=== PATIENT | female | born 2000 | race Caucasian/White ===

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

== ENCOUNTER 2023-03-15 12:07 | Emergency (ER) | payer OTHER, SELFPAY ==
--- NOTE | 2023-03-15 12:12 | W.ED.ABDPA2 ---
HPI - Abdominal Pain General: Chief Complaint: Abdominal Pain Stated Complaint: abd pain Time Seen by Provider: 03/15/23 12:09 Source: patient and family (mother) Mode of arrival: ambulatory Limitations: no limitations History of Present Illness: Patient is a 22-year-old female presents to ED today along with her mother for concerns of lower pelvic pain/cramping. Patient states she has a history of irregular menstrual cycles and states she has not had a period in 3 months. She states today she began her menstrual cycle and while at work began having severe pelvic cramping to the point where the pain was making her very anxious. She states bleeding is not heavy or abnormal compared to her normal day 1 of menstrual cycles. She states upon arrival to the ED her pain has improved and feels calm. She is not having any nausea, vomiting, changes in bowel movements. No fevers. History of ovarian cysts. No vaginal odor, discharge, dyspareunia. MD elicited complaint: abdominal pain Pertinent past history: none Onset (ago): hour(s) Pain Consistency: constant (improved upon arrival to ED) Location: Pelvis Severity: moderate Quality: cramping Radiation: none Migration to: no migration Exacerbating factors: nothing Relieving factors: nothing Context: other (started menstrual cycle today) Associated Symptoms: Denies chills, diarrhea, dysuria, fever(s), nausea and vomiting Treatments prior to arrival: NSAIDs Related Data: Patient : No (unknown ) Review of Systems Const: Denies: fever(s), chills, body aches, fatigue or malaise Card: Denies: chest pain Resp: Denies: dyspnea GI: Reports: abdominal pain; Denies: nausea, vomiting or diarrhea : Reports: vaginal bleeding, irregular period and pelvic pain; Denies: flank pain, difficulty voiding, dysuria, urinary frequency, urinary urgency, urinary hesitancy or dyspareunia Musc: Denies: back pain Skin/Breast: Denies: rash Neuro: Denies: headache(s) or dizziness PFS ED PFSH: Social History Smoking and tobacco status: never smoked Second hand smoke exposure: No Physical Exam Const: COMMON NORMALS: no acute distress, average body habitus, patient oriented x3, no limitations, healthy appearing, alert and well nourished GENERAL APPEARANCE: cooperative ORIENTATION/CONSCIOUSNESS: Yes awake, Yes oriented to person, Yes oriented to place and Yes oriented to time HENMT: COMMON NORMALS: normocephalic and atraumatic HEAD & SCALP: normal to inspection, normocephalic and atraumatic Chest: COMMONS NORMALS: normal inspection of the chest and normal palpation of entire chest wall Resp: COMMON NORMALS: normal respiratory effort and clear to auscultation bilaterally AUSCULTATION: clear to auscultation bilaterally Cardio: COMMON NORMALS: regular rate and regular rhythm RATE: regular rate RHYTHM: regular rhythm GI: COMMON NORMALS: Normal to inspection, nondistended, normoactive bowel sounds present, Soft to palpation, No hepatosplenomegaly present and no masses INSPECTION: Yes normal to inspection AUSCULTATION: Yes normoactive bowel sounds PALPATION: Yes Soft to palpation, Yes Tenderness to palpation present (GI) (mild tenderness to lower pelvis-non surgical exam), No Guarding due to palpation present (GI), No Rigid due to palpation and Yes No hepatosplenomegaly present : COMMON NORMALS: Yes no CVA tenderness BLADDER/KIDNEY EXAM: Yes no CVA tenderness Back/Pelvis: COMMON NORMALS: no CVA tenderness, thoracic and lumbar spine normal to inspection, no thoracic nor lumbar tenderness and thoraco-lumbar ROM normal Extremity: COMMON NORMALS: normal to inspection GENERAL: Yes normal exam except as noted Neuro: XI[place] COMA SCALE: document GCS findings [place] coma scale eye opening: Spontaneous [place] coma scale verbal response: Orientated [place] coma scale motor response: Obey commands [place] coma scale total score: 15 COMMON NORMALS: patient oriented x3, moves all extremities, no focal motor deficits, no sensory deficits noted and gait normal SENSORIUM/ORIENTATION: Yes alert, Yes oriented to person, Yes oriented to place and Yes oriented to time Skin: COMMON NORMALS: no rashes or lesions noted GENERAL SKIN EXAM: no rashes or lesions noted Course Vital Signs: Vital signs: Vital Signs Temperature 97.7 F 03/15/23 12:23 Pulse Rate 62 03/15/23 12:23 Respiratory Rate 18 03/15/23 12:23 Blood Pressure 106/66 03/15/23 12:23 Pulse Oximetry 95 03/15/23 12:23 Oxygen Delivery Me thod Room Air 03/15/23 12:23 MDM - Abdominal Pain Medical Decision Making Patient states her pain has been much improved while here in the ED. Her vital signs have remained stable. Blood work is unremarkable. UA showing hematuria most likely contamination from her menstrual blood. No evidence for infection. Patient states she feels comfortable going home at this time. Strict return ED precautions given. Lab Data 03/15/23 12:37 03/15/23 12:37 Labs/Radiology: Laboratory Results WBC 4.1 10^3/uL (4.5-13.0) L 03/15/23 12:37 RBC 4.50 10^6/uL (4.1-5.3) 03/15/23 12:37 Hgb 12.5 g/dL (11.5-15.3) 03/15/23 12:37 Hct 40.1 % (37.0-47.0) 03/15/23 12:37 MCV 89.1 fl (81-99) 03/15/23 12:37 MCH 27.8 pg (28.0-34.0) L 03/15/23 12:37 MCHC 31.2 g/dL (30.0-36.0) 03/15/23 12:37 RDW 12.9 % (12.1-15.1) 03/15/23 12:37 Plt Count 198 10^3/cmm (130-400) 03/15/23 12:37 MPV 11.0 fL (7.4-10.4) H 03/15/23 12:37 Neut % (Auto) 51.1 % 03/15/23 12:37 Lymph % (Auto) 38.0 % 03/15/23 12:37 Williamson % (Auto) 5.7 % 03/15/23 12:37 Eos % (Auto) 4.2 % 03/15/23 12:37 Baso % (Auto) 1.0 % 03/15/23 12:37 Neut # (Auto) 2.07 10^3/uL (1.8-8.0) 03/15/23 12:37 Lymph # (Auto) 1.5 10^3/uL (1.5-6.5) 03/15/23 12:37 Williamson # (Auto) 0.2 10^3/uL (0.2-0.9) 03/15/23 12:37 Eos # (Auto) 0.2 10^3/uL (0.0-0.8) 03/15/23 12:37 Baso # (Auto) 0.0 10^3/uL (0.0-0.1) 03/15/23 12:37 Nucleated RBC % (auto) 0 % 03/15/23 12:37 Nucleated RBCs # 0.0 /100WBC 03/15/23 12:37 Sodium 138 mmol/L (136-145) 03/15/23 12:37 Potassium 3.9 mmol/L (3.5-5.1) 03/15/23 12:37 Chloride 103 mmol/L (98-107) 03/15/23 12:37 Carbon Dioxide 20 mmol/L (22-29) L 03/15/23 12:37 Anion Gap 18.9 (5-19) 03/15/23 12:37 BUN 11 mg/dL (6-20) 03/15/23 12:37 Creatinine 0.6 mg/dL (0.5-0.9) 03/15/23 12:37 GFR Calculation 127.5 mL/min (90-130) 03/15/23 12:37 Glucose 119 mg/dL (65-115) H 03/15/23 12:37 Calculated Osmolality 287 mOsm/kg (285-295) 03/15/23 12:37 Calcium 9.1 mg/dL (8.5-10.5) 03/15/23 12:37 Total Bilirubin 0.4 mg/dL (0.15-1.2) 03/15/23 12:37 AST 17 U/L (0-32) 03/15/23 12:37 ALT 8 U/L (0-33) 03/15/23 12:37 Alkaline Phosphatase 63 U/L (35-105) 03/15/23 12:37 Total Protein 7.1 g/dL (6.6-8.7) 03/15/23 12:37 Albumin 4.3 g/dL (3.5-5.2) 03/15/23 12:37 Globulin 2.8 g/dL (1.3-4.6) 03/15/23 12:37 Lipase 26 U/L (13-60) 03/15/23 12:37 HCG, Qual Negative (Negative) 03/15/23 12:37 Urine Color Yellow (Yellow) 03/15/23 12:40 Urine Appearance Clear (CLEAR) 03/15/23 12:40 Urine pH 6 (5-7) 03/15/23 12:40 Ur Specific Sherman 1.020 (1.005-1.030) 03/15/23 12:40 Urine Protein 1+ (Negative) H 03/15/23 12:40 Urine Glucose (UA) Norm (Normal) 03/15/23 12:40 Urine Ketones 1+ (Negative) H 03/15/23 12:40 Urine Blood 2+ (Negative) H 03/15/23 12:40 Urine Nitrate Negative (Negative) 03/15/23 12:40 Urine Bilirubin Neg (Negative) 03/15/23 12:40 Urine Urobilinogen Norm mg/dL (Negative) 03/15/23 12:40 Ur Leukocyte Esterase Negative (Negative) 03/15/23 12:40 Urine RBC 0-4 /hpf (0-2) H 03/15/23 12:40 Urine WBC 0-4 /hpf (0-5) H 03/15/23 12:40 Ur Squamous Epith Cells 0-4 /hpf (0-5) H 03/15/23 12:40 Amorphous Sediment Not Reportable 03/15/23 12:40 Urine Bacteria Trace /hpf (NONE) 03/15/23 12:40 Urine Mucus 1+ /hpf 03/15/23 12:40 Discharge Plan Discharge Patient Disposition: Home Clinical Impression: Menstrual cramps Condition: Stable Prescriptions: No Action bupropion HCl 150 mg Tablet Extended Release 24 Hr 150 mg PO DAILY Qty: 30 2RF Discharge Orders: Discharge ED (Routine); Ordered 03/15/23 Ordered By: Albertina Banegas Referrals: Fernanda May MD [Primary Care Provider] - Activity Restrictions/Additional Instructions: You may return to the emergency department for worsening or severe abdominal/pelvic pain, heavy menstrual bleeding, lightheadedness/dizziness/passing out episodes, fevers, or any other concerns you may have. I hope you begin to feel better soon. Coding Level of Care Code ED [employer] for Ila Chang
[2023-03-15 12:23] VITALS: BP 106/66; PULSE 62; RESP 18; TEMP 36.5; O2SAT 95
[2023-03-15 12:48] LABS: Eosinophils # 0.2 10^3/uL (0.0-0.8); Eosinophils % 4.2 %; Hematocrit 40.1 % (37.0-47.0); Hemoglobin 12.5 g/dL (11.5-15.3); Lymphocytes # 1.5 10^3/uL (1.5-6.5); Mean Corpuscular HGB Conc 31.2 g/dL (30.0-36.0); Mean Corpuscular Hemoglobin 27.8 pg (28.0-34.0); Mean Corpuscular Volume 89.1 fl (81-99); Monocytes # 0.2 10^3/uL (0.2-0.9); Monocytes % 5.7 %; Neutrophils # 2.07 10^3/uL (1.8-8.0); Neutrophils % 51.1 %; Nucleated Red Blood Cells % 0 %; Platelet Count 198 10^3/cmm (130-400); Red Cell Distribution Width 12.9 % (12.1-15.1); White Blood Count 4.1 10^3/uL (4.5-13.0)
[2023-03-15 13:03] LABS: HCG, Serum Qual Negative (Negative)
[2023-03-15 13:06] LABS: Alanine Aminotransferase 8 U/L (0-33); Albumin Level 4.3 g/dL (3.5-5.2); Alkaline Phosphatase 63 U/L (35-105); Anion Gap 18.9 (5-19); Aspartate Amino Transferase 17 U/L (0-32); Blood Urea Nitrogen 11 mg/dL (6-20); Calcium 9.1 mg/dL (8.5-10.5); Carbon Dioxide 20 mmol/L (22-29); Chloride 103 mmol/L (98-107); Globulin 2.8 g/dL (1.3-4.6); Glomerular Filtration Rate 127.5 mL/min (90-130); Glucose 119 mg/dL (65-115); Lipase 26 U/L (13-60); Osmolality Calculated 287 mOsm/kg (285-295); Potassium 3.9 mmol/L (3.5-5.1); Sodium 138 mmol/L (136-145); Total Bilirubin 0.4 mg/dL (0.15-1.2); Total Protein 7.1 g/dL (6.6-8.7)
[2023-03-15 13:18] LABS: Bilirubin Urine Neg (Negative); Blood Urine 2+ (Negative); Glucose Urine UA Norm (Normal); Ketones Urine 1+ (Negative); Leukocyte Esterase Urine Negative (Negative); Nitrate Urine Negative (Negative); Protein Urine 1+ (Negative); Urine Appearance Clear (CLEAR); Urine Color Yellow (Yellow); Urobilinogen Urine Norm (Negative); pH Urine 6 (5-7)
[2023-03-15 13:19] LABS: Add Urine Microscopic? YES; Bacteria Urine TRACE /hpf; Mucus Urine 1+ /hpf; RBC Urine 0-4 /hpf (0-2); Squamous Epithelial Cell Urine 0-4 /hpf (0-5); WBC Urine 0-4 /hpf (0-5)
[2023-03-15 13:58] VITALS: BP 110/60; PULSE 74; RESP 16; O2SAT 100
== END 2023-03-15 13:59 | disposition home or self-care (01) ==
PROVIDERS: Emergency Provider Physician Assistant; PCP Family Medicine
DX: N94.6 Dysmenorrhea, unspecified (principal)
CPT/HCPCS: 80053; 81001; 83690; 84703; 85025; 99283